=== PATIENT | female | born 1965 | race Caucasian/White ===

== ENCOUNTER 2021-01-24 13:14 | Emergency (ER) | payer OTHER ==
[~2021-01-24] VITALS: Ht 167.6 cm; Wt 90.7 kg
[2021-01-24 13:50] LABS: BASO % 0.4 % (0.0-1.0); EOS # 0.1 10*3/uL (0.0-0.4); EOS % 0.5 % (1.0-4.0); HEMATOCRIT 44.7 % (37.0-47.0); LYMPH # 2.5 10*3/uL (1.3-4.4); LYMPH % 22.9 % (27.0-41.0); MEAN CELL VOLUME 98.7 fl (81.0-99.0); MEAN CORPUSCULAR HGB CONC 32.4 g/dl (33.0-37.0); MONO # 0.8 10*3/uL (0.1-1.0); NEUT # 7.5 10*3/uL (2.3-7.9); NEUT % 68.3 % (47.0-73.0); PLATELET COUNT AUTOMATED 300 10*3/uL (130-400); RED BLOOD COUNT 4.53 10*6/uL (4.10-5.10); RED CELL DISTRI WIDTH 12.6 % (0-14.5)
[2021-01-24 14:03] LABS: ACT PARTIAL THROMBO TIME 22.9 SECONDS (20.0-32.1)
[2021-01-24 14:09] LABS: ALBUMIN 3.6 gm/dl (3.1-4.5); ALKALINE PHOSPHATASE 80 U/L (45-117); BUN 11 mg/dl (7-24); CHLORIDE 108 mmol/L (98-107); CREATININE 0.87 mg/dL (0.55-1.02); LIPASE 71 U/L (73-393); POTASSIUM 3.7 mmol/L (3.5-5.1); SGOT/AST 37 IU/L (3-35); SGPT/ALT 74 U/L (12-78); SODIUM 141 mmol/L (136-145); TOTAL PROTEIN 7.7 gm/dL (6.4-8.2)
[2021-01-24 14:11] LABS: TROPONIN I < 0.015 ng/ml (<0.045)
[2021-01-24 14:22] LABS: BILIRUBIN Negative (Negative); BLOOD Trace-Lysed (Negative); CLARITY Clear (Clear); COLOR Yellow (Yellow); GLUCOSE Negative (Negative); KETONE 1+ (Negative); LEUKO ESTERASE Trace (Negative); NITRITE Negative (Negative); PH 5.5 (4.5-8.0)
[2021-01-24 14:29] LABS: EPITHELIAL CELLS 0-2
[2021-01-24 14:30] LABS: BACTERIA 2+; MUCOUS TRACE
== END 2021-01-24 14:59 | disposition left against medical advice (07) ==
LOC: ED 13:14
PROVIDERS: Emergency Medicine
DX: E86.0 Dehydration (principal); R11.2 Nausea with vomiting, unspecified; E87.2 Acidosis